=== PATIENT | male | born 1960 | race Caucasian/White ===

== ENCOUNTER 2020-04-28 16:34 | Outpatient (REF) | payer BC, SELFPAY | END 2020-04-28 16:35 | disposition home or self-care (01) | LOC: HO.LNP 16:34 | PROVIDERS: Visit Provider Internal Medicine | DX: Z20.828 Contact with and (suspected) exposure to other viral communicable diseases (principal); R53.83 Other fatigue; R05 Cough; R51.9 Headache, unspecified | CPT/HCPCS: U0003 ==

== ENCOUNTER → 2020-06-27 08:16 | Outpatient (REF) | payer BC, SELFPAY ==
--- NOTE | 2020-06-27 08:30 | CA_ITS ---
Acquisition Time: 2020-06-27 08:33:56 Total Exercise Time: 00:10:04 Test Indications: Chest Pain Medications: Protocol: SHANNEN Max HR: 151 BPM 94% of Pred: 160 BPM Max BP: 186/064 mmHG Max Work Load: 11.8 METS PT EXERCISED ON STD SHANNEN PROTOCOL FOR 10 MIN INTO STAGE 4. MAX HR 151-94% MAX. NO CP OR SOB. NO ISCHEMIC CHANGES. NO ARRHYTHMIAS. CLINICALLY AND ELEC NEG. Referred By: Ronnell Torres Overread By: ROMERO TORRES MD
== END ==
LOC: HO.CARD 08:16
PROVIDERS: PCP Internal Medicine; Visit Provider Internal Medicine
DX: R07.2 Precordial pain (principal); Z82.49 Family history of ischemic heart disease and other diseases of the circulatory system
CPT/HCPCS: 93017

== ENCOUNTER → 2020-08-03 13:41 | Outpatient (BNVA) | payer BC, SELFPAY | PROVIDERS: PCP Internal Medicine; Visit Provider Surgery | DX: K64.9 Unspecified hemorrhoids (principal) | CPT/HCPCS: 46600 ==

== ENCOUNTER 2020-09-08 15:00 | Outpatient (REF) | payer BC, SELFPAY ==
[2020-09-08 15:45] LABS: MANUAL DIFF FLAG NO
[2020-09-08 15:48] LABS: Basophils Percent Auto 0.6 % (0-2); Eosinophils Absolute Auto 0.3 X10*3/uL (0.0-0.4); Eosinophils Percent Auto 3.5 % (0-4); Hematocrit 44.8 % (42-52); Hemoglobin 14.7 g/dl (14.0-18.0); Imm Gran Abs Auto 0.02 X10*3/uL (0.00-0.03); Imm Gran Pct Auto 0.3 % (0.0-0.4); Lymphocytes Absolute Auto 1.5 X10*3/uL (1.2-4.9); Lymphocytes Percent Auto 20.7 % (20-40); Mean Corpuscular HGB Conc 32.8 g/dl (31.0-36.0); Mean Corpuscular Hemoglobin 29.1 pg (27.0-33.0); Mean Corpuscular Volume 88.7 fL (80-98); Mean Platelet Volume 10.3 fL (9.4-12.4); Monocytes Absolute Auto 0.6 X10*3/uL (0.1-1.2); Monocytes Percent Auto 7.9 % (2-11); Neutrophils Absolute Auto 4.9 X10*3/uL (2.0-8.3); Platelet Count 260 X10*3/uL (160-400); Red Blood Count 5.05 X10*6/uL (4.60-5.80); Red Cell Distribution Width 12.8 % (11.0-16.0); White Blood Count 7.2 X10*3/uL (4.8-10.8)
[2020-09-08 16:01] LABS: Alanine Aminotransferase 39 U/L (0-40); Albumin Level 4.4 g/dL (3.5-5.0); Alkaline Phosphatase 83 U/L (39-117); Anion Gap 11 (12-20); Aspartate Amino Transferase 23 U/L (5-37); Bilirubin Total 0.8 mg/dL (0.0-1.0); Blood Urea Nitrogen 16 mg/dL (9-16); C Reactive Protein 0.12 mg/dL (< or = 0.50); Calcium 8.7 mg/dL (8.4-10.2); Carbon Dioxide 27 mmol/L (22-29); Chloride 106 mmol/L (96-108); Estimated Glomerular Filt Rate > 60; Glucose Random 99 mg/dL (60-115); Sodium 140 mmol/L (135-145); Total Protein 6.9 g/dL (6.5-8.0)
[2020-09-08 16:25] LABS: Prostate Specific Antigen < 0.05 ng/mL (<0.05-4.0)
[2020-09-08 16:44] LABS: Glucose Urine UA NEG (NEG); Leukocyte Esterase Urine NEG (NEG); Nitrite Urine NEG (NEG); PH 6.5 (5.0-8.0); Urine Blood NEG (NEG); Urine Ketones NEG (NEG); Urine Protein NEG (NEG-TRACE)
[2020-09-08 16:48] LABS: Appearance Urine CLEAR; Color Urine YELLOW
== END 2020-09-08 15:01 | disposition home or self-care (01) ==
LOC: HO.LAB 15:00
PROVIDERS: PCP Internal Medicine; Visit Provider Internal Medicine
DX: R30.0 Dysuria (principal); R50.9 Fever, unspecified; Z12.5 Encounter for screening for malignant neoplasm of prostate
CPT/HCPCS: 36415; 80053; 81003; 84153; 85025; 86140; 87086

== ENCOUNTER 2021-03-14 06:11 | Outpatient (REF) | payer BC, SELFPAY ==
[2021-03-14 06:16] LABS: MANUAL DIFF FLAG NO
[2021-03-14 07:28] LABS: Basophils Percent Auto 0.5 % (0-2); Eosinophils Absolute Auto 0.2 X10*3/uL (0.0-0.4); Eosinophils Percent Auto 2.6 % (0-4); Hematocrit 46.2 % (42-52); Hemoglobin 15.1 g/dl (14.0-18.0); Imm Gran Abs Auto 0.02 X10*3/uL (0.00-0.03); Imm Gran Pct Auto 0.3 % (0.0-0.4); Lymphocytes Absolute Auto 1.5 X10*3/uL (1.2-4.9); Mean Corpuscular HGB Conc 32.7 g/dl (31.0-36.0); Mean Corpuscular Hemoglobin 29.5 pg (27.0-33.0); Mean Corpuscular Volume 90.2 fL (80-98); Mean Platelet Volume 10.4 fL (9.4-12.4); Monocytes Absolute Auto 0.5 X10*3/uL (0.1-1.2); Monocytes Percent Auto 8.6 % (2-11); Neutrophils Absolute Auto 3.9 X10*3/uL (2.0-8.3); Platelet Count 284 X10*3/uL (160-400); Red Blood Count 5.12 X10*6/uL (4.60-5.80); Red Cell Distribution Width 12.6 % (11.0-16.0); White Blood Count 6.2 X10*3/uL (4.8-10.8)
[2021-03-14 07:53] LABS: Alanine Aminotransferase 31 U/L (0-40); Albumin Level 4.6 g/dL (3.5-5.0); Alkaline Phosphatase 86 U/L (39-117); Anion Gap 10 (12-20); Aspartate Amino Transferase 20 U/L (5-37); Bilirubin Total 0.8 mg/dL (0.0-1.0); Blood Urea Nitrogen 13 mg/dL (9-16); Calcium 8.9 mg/dL (8.4-10.2); Carbon Dioxide 26 mmol/L (22-29); Chloride 108 mmol/L (96-108); Cholesterol 197 mg/dL; Estimated Glomerular Filt Rate > 60; Glucose Fasting 104 mg/dL (60-99); HDL Cholesterol 40 mg/dL; LDL Cholesterol Calculated 119 mg/dl; Potassium 4.3 mmol/L (3.3-5.1); Sodium 140 mmol/L (135-145); Total Protein 6.9 g/dL (6.5-8.0); Triglycerides 192 mg/dL
[2021-03-14 08:16] LABS: Prostate Specific Antigen < 0.05 ng/mL (<0.05-4.0)
== END 2021-03-14 06:12 | disposition home or self-care (01) ==
LOC: HO.LAB 06:11
PROVIDERS: PCP Internal Medicine; Visit Provider Internal Medicine
DX: Z00.00 Encounter for general adult medical examination without abnormal findings (principal); Z12.5 Encounter for screening for malignant neoplasm of prostate
CPT/HCPCS: 36415; 80053; 80061; 84153; 85025

== ENCOUNTER 2021-05-09 14:06 | Outpatient (REF) | payer BC, SELFPAY ==
[2021-05-09 16:32] LABS: Influenza A PCR NEGATIVE (Negative); Influenza B PCR NEGATIVE (Negative); Resp Syncy Virus RNA Qual PCR NEGATIVE (Negative); SARS COV2 PCR INHOUSE NEGATIVE (Negative)
== END 2021-05-09 14:07 | disposition home or self-care (01) ==
LOC: HO.LNP 14:06
PROVIDERS: Visit Provider Internal Medicine
DX: Z20.822 Contact with and (suspected) exposure to COVID-19 (principal)
CPT/HCPCS: 0241U

== ENCOUNTER 2021-05-31 13:26 | Outpatient (REF) | payer BC, SELFPAY ==
[2021-05-31 14:28] LABS: Influenza A PCR NEGATIVE (Negative); Influenza B PCR NEGATIVE (Negative); Resp Syncy Virus RNA Qual PCR NEGATIVE (Negative); SARS COV2 PCR INHOUSE NEGATIVE (Negative)
== END 2021-05-31 13:27 | disposition home or self-care (01) ==
LOC: HO.LNP 13:26
PROVIDERS: Visit Provider Internal Medicine
DX: Z20.822 Contact with and (suspected) exposure to COVID-19 (principal)
CPT/HCPCS: 0241U

== ENCOUNTER 2021-09-10 07:07 | Day surgery (SDC) | payer BC, SELFPAY ==
[2021-07-31 14:08] VITALS: BMI 27.3
--- NOTE | 2021-09-07 09:17 | HO.ANESPROP2 ---
Documented by User: Kandy Chris NP 09/07/21 09:18 HPI - Anesthesia Eval Consult details Narrative: 61yo M for Colonoscopy PMFSH Active Problems Active Problems: All Active Problems (Updated 07/31/21 @ 14:08 by Rosey Yañez RN) Bleeding hemorrhoids (Acute) History of prostate cancer (Acute) Hyperlipidemia (Acute) Past Medical History Medical History (Updated 07/31/21 @ 14:08 by Rosey Yañez RN) Bleeding hemorrhoids COVID-19 vaccine series completed History of prostate cancer Hyperlipidemia Surgical History Surgical History (Updated 07/31/21 @ 13:42 by Rosey Yañez RN) H/O colonoscopy History of cholecystectomy History of removal of cyst Hx of bilateral inguinal hernia repair Hx of hemorrhoidectomy Hx of prostatectomy Social History Social History Are you a primary family member caretaker to a significant other at home: No Do you presently have visiting nurse or other home services: No Alcohol intake: current Alcohol intake frequency: holidays/special occasions only Patient Tobacco Use Status: Former Tobacco user Quit Date: 2016 Tobacco use type: Cigarette Use of substances other than those prescribed or required for medical reasons: No Have you been hit, kicked, punched, or otherwise hurt by someone within the past year? If so, by whom?: No Are you DNR?: No Advance Directives: No Advance Directives Information Provided: Yes Advance Directives on File: No Recently lost weight without trying: No Eating poorly because of decreased appetite: No Nutrition Risks: No Nutritional Risk Poor oral hygiene: No Meds Allergies Allergy/AdvReac Type Severity Reaction Status Date / Time shellfish derived Allergy Unknown Unknown Verified 07/27/21 09:29 Home Medications Medication Instructions Recorded Confirmed Last Taken Type atorvastatin 10 mg tablet 10 mg PO BEDTIME 07/31/21 07/31/21 Unknown History Exam Exam Date and Time: September 07, 2021 0917 Height,Weight and Vital Signs: Height 5 ft 9 in Weight 83.915 kg Pertinent Lab Results Pertinent Lab Results: Laboratory Tests 03/14/21 03/14/21 06:15 06:15 WBC 6.2 Hgb 15.1 Hct 46.2 Plt Count 284 Sodium 140 Potassium 4.3 Chloride 108 Carbon Dioxide 26 BUN 13 Creatinine 1.01 Narrative Narrative: Stress 06/2020 Protocol: SHANNEN ? Max HR: 151 BPM? 94% of? Pred: 160 BPM Max BP: 186/064 mmHG Max Work Load: 11.8 METS ? PT EXERCISED ON STD SHANNEN PROTOCOL FOR 10 MIN INTO STAGE 4. MAX HR 151-94% MAX. ?NO CP OR SOB. NO ISCHEMIC CHANGES. NO ARRHYTHMIAS. CLINICALLY AND ELEC NEG. Assessment and Plan Assessment Anesthesia Assessment: Chart Reviewed Documented by User: Jack Chaidez MD 09/10/21 21:01 PMF Past Medical History Medical History (Updated 07/31/21 @ 14:08 by Rosey Yañez, RN) Bleeding hemorrhoids COVID-19 vaccine series completed History of prostate cancer Hyperlipidemia Family History Family history of problems with anesthesia: No Surgical History Surgical History (Updated 07/31/21 @ 13:42 by Rosey Yañez RN) H/O colonoscopy History of cholecystectomy History of removal of cyst Hx of bilateral inguinal hernia repair Hx of hemorrhoidectomy Hx of prostatectomy History of Problems with Anesthesia: No Social History Social History Are you a primary family member caretaker to a significant other at home: No Do you presently have visiting nurse or other home services: No Alcohol intake: current Alcohol intake frequency: holidays/special occasions only Patient Tobacco Use Status: Former Tobacco user Quit Date: 2016 Tobacco use type: Cigarette Use of substances other than those prescribed or required for medical reasons: No Have you been hit, kicked, punched, or otherwise hurt by someone within the past year? If so, by whom?: No Are you DNR?: No Advance Directives: No Advance Directives Information Provided: Yes Advance Directives on File: No Recently lost weight without trying: No Eating poorly because of decreased appetite: No Nutrition Risks: No Nutritional Risk Poor oral hygiene: No Meds Allergies Allergy/AdvReac Type Severity Reaction Status Date / Time shellfish derived Allergy Unknown Unknown Verified 07/27/21 09:29 Home Medications Medication Instructions Recorded Confirmed Last Taken Type atorvastatin 10 mg tablet 10 mg PO BEDTIME 07/31/21 07/31/21 Unknown History Exam Airway Mallampati Class: III TM Dist: >3cm Neck ROM: Full Loose/Missing/Broken Teeth: Yes Heart: rrr Lungs: b/l breath sounds Assessment and Plan Assessment Anesthesia Assessment: Anesthesia Plan Discussed Final Anesthetic Review Family History of Problems with Anesthesia: No History of Problems with Anesthesia: No NPO: Yes ASA Class: II Final Preanesthetic Review: Meds/Allgs Chart Reviewed, Consent Obtained/Reviewed and Anes Risks/Benef Reviewed Patient Risk: Intermediate Procedure Risk: Intermediate Anesthetic Plan Anesthetic Plan: MAC: Disposition: Standard PACU
[2021-09-10 07:36] VITALS: BP 125/85; PULSE 86; RESP 16; TEMP 36.9; O2SAT 97
[2021-09-10] MEDS: Lactated Ringers 1,000 ML 100 ML IVCONT (07:46)
[2021-09-10 09:28] VITALS: BP 106/71; PULSE 62; RESP 12; TEMP 36.6; O2SAT 95
--- NOTE | 2021-09-10 09:28 | P.BOP_ITS ---
Brief Operative Note Date of Service: 09/10/21 Pre-op diagnosis: Screening Post-op diagnosis: other (Colon polyp) Procedure: Colonoscopy to the cecum and TI with bx/removal of polyp Surgeon: Hans Glasgow Anesthesia: MAC Was an Residential Gas Heat Technician used for this Procedure?: No Estimated blood loss (mL): 2.0 Pathology: other (A. Transverse colon polyp) Condition: stable Disposition: PACU
[2021-09-10 09:47] VITALS: BP 110/64; PULSE 75; RESP 18; TEMP 36.3; O2SAT 96
--- NOTE | 2021-09-12 16:40 | OP_ITS ---
SURGEON: Hans Glasgow MD INDICATIONS: The patient presents for evaluation of colorectal cancer screening. Full consent was obtained from him for this, including risks of bleeding and perforation. PREOPERATIVE DIAGNOSIS: Colorectal cancer screening. POSTOPERATIVE DIAGNOSIS: PROCEDURE PERFORMED: Colonoscopy to cecum and terminal ileum with biopsy and removal of polyp. ESTIMATED BLOOD LOSS: COMPLICATIONS: ANESTHESIA: Monitored anesthesia care. ASSISTANTS: SPECIMENS: POSTOPERATIVE DIAGNOSES: Colorectal cancer screening, small colon polyp, diverticulosis and internal hemorrhoids. DESCRIPTION OF PROCEDURE: The patient was placed in the left lateral decubitus position. The digital rectal exam revealed no abnormalities. The Olympus video pediatric colonoscope was entered into the rectum and advanced easily to the cecum. Once in the cecum, I did identify normal-appearing cecal pouch with appendiceal orifice and a normal-appearing ileocecal valve. The terminal ileum was cannulated and appeared normal. Scope was withdrawn back in the colon. The entire cecum and ileocecal valve appeared normal. Scope was slowly withdrawn assessing all mucosal surfaces carefully. Preparation was excellent. In the transverse colon was an approximately 5 mm grossly adenomatous polyp, which was biopsied and completely removed with cold biopsy forceps. I did not visualize any other polyps, colitis, nor angiodysplasia. There was a mild amount of sigmoid diverticulosis. In the rectum, scope was retroflexed visualizing internal hemorrhoids, but no other pathology. The rectal mucosa appeared normal. The scope was straightened and withdrawn from the patient. He tolerated the procedure well and was returned to the recovery area in stable condition. IMPRESSION: 1. Small colon polyp, status post biopsy removal. 2. Diverticulosis. 3. Internal hemorrhoids. PLAN: The results of biopsy will be checked. If this is a tubular adenoma, I would recommend a followup colonoscopy in 5 years. If it is only hyperplastic, I would recommend a followup colonoscopy in 10 years. He was advised not to use any aspirin and NSAIDs for 1 week. He will otherwise see me on a p.r.n. basis. MD CHERYL Lozano/AKHIL / [phone]
== END 2021-09-10 10:09 | disposition home or self-care (01) ==
PROVIDERS: PCP Internal Medicine; Visit Provider Internal Medicine
PROC: 0DJD8ZZ Inspection of Lower Intestinal Tract, Via Natural or Artificial Opening Endoscopic (ICD-10-PCS; CPT 45378; principal; 2021-09-10 08:20)
DX: Z12.11 Encounter for screening for malignant neoplasm of colon (principal); D12.3 Benign neoplasm of transverse colon; K57.30 Diverticulosis of large intestine without perforation or abscess without bleeding; K64.8 Other hemorrhoids; E78.00 Pure hypercholesterolemia, unspecified; Z85.46 Personal history of malignant neoplasm of prostate; Z87.891 Personal history of nicotine dependence; Z90.49 Acquired absence of other specified parts of digestive tract
CPT/HCPCS: 45380; 88305

== ENCOUNTER 2022-12-24 06:28 | Outpatient (REF) | payer BC, SELFPAY ==
[2022-12-24 06:47] LABS: MANUAL DIFF FLAG NO
[2022-12-24 07:21] LABS: Basophils Percent Auto 0.6 % (0-2); Eosinophils Absolute Auto 0.2 X10*3/uL (0.0-0.4); Eosinophils Percent Auto 3.2 % (0-4); Hematocrit 47.4 % (42.0-52.0); Hemoglobin 15.3 g/dl (14.0-18.0); Imm Gran Abs Auto 0.02 X10*3/uL (0.00-0.03); Imm Gran Pct Auto 0.4 % (0.0-0.4); Lymphocytes Absolute Auto 1.6 X10*3/uL (1.2-4.9); Mean Corpuscular HGB Conc 32.3 g/dl (31.0-36.0); Mean Corpuscular Hemoglobin 29.6 pg (27.0-33.0); Mean Corpuscular Volume 91.7 fL (80.0-98.0); Mean Platelet Volume 10.4 fL (9.4-12.4); Monocytes Absolute Auto 0.5 X10*3/uL (0.1-1.2); Monocytes Percent Auto 9.5 % (2-11); Neutrophils Absolute Auto 3.1 x10*3/uL (2.0-8.3); Neutrophils Percent Auto 57.3 % (45-73); Platelet Count 255 X10*3/uL (160-400); Red Blood Count 5.17 X10*6/uL (4.60-5.80); Red Cell Distribution Width 12.6 % (11.0-16.0); White Blood Count 5.4 X10*3/uL (4.8-10.8)
[2022-12-24 07:31] LABS: Appearance Urine Clear; Color Urine Yellow; Glucose Urine UA Negative (Negative); Leukocyte Esterase Urine Negative (Negative); Nitrite Urine Negative (Negative); PH 5.5 (5.0-9.0); Specific Gravity - Urine >= 1.030 (1.005-1.025); Urine Blood Negative (Negative); Urine Ketones Negative (Negative); Urine Protein Negative (Neg-Trace)
[2022-12-24 07:53] LABS: Alanine Aminotransferase 24 U/L (0-40); Albumin Level 4.5 g/dL (3.5-5.0); Alkaline Phosphatase 88 U/L (39-117); Anion Gap 11 (12-20); Aspartate Amino Transferase 18 U/L (5-37); Bilirubin Total 1.1 mg/dL (0.0-1.0); Blood Urea Nitrogen 14 mg/dL (9-16); Calcium 9.3 mg/dL (8.4-10.2); Carbon Dioxide 29 mmol/L (22-29); Chloride 104 mmol/L (96-108); Cholesterol 177 mg/dL; Estimated Glomerular Filt Rate > 60; Glucose Fasting 100 mg/dL (60-99); HDL Cholesterol 44 mg/dL; LDL Cholesterol Calculated 104 mg/dl; Potassium 3.9 mmol/L (3.3-5.1); Sodium 140 mmol/L (135-145); Total Protein 7.2 g/dL (6.5-8.0); Triglycerides 145 mg/dL
[2022-12-24 08:04] LABS: Thyroid Stimulating Hormone 4.39 uIU/mL (0.32-4.0)
[2022-12-24 08:25] LABS: Prostate Specific Antigen < 0.10 ng/mL (<0.05-4.0); Vitamin B12 448 pg/mL (200-900)
[2022-12-29 12:23] LABS: Testosterone, Total 649 ng/dL (250-1100)
== END 2022-12-24 06:29 | disposition home or self-care (01) ==
LOC: HO.LAB 06:28
PROVIDERS: PCP Internal Medicine; Visit Provider Internal Medicine
DX: Z12.5 Encounter for screening for malignant neoplasm of prostate (principal); R53.83 Other fatigue; E78.00 Pure hypercholesterolemia, unspecified; Z82.49 Family history of ischemic heart disease and other diseases of the circulatory system
CPT/HCPCS: 36415; 80053; 80061; 81003; 82607; 84153; 84403; 84443; 85025

== ENCOUNTER 2023-01-22 06:02 | Outpatient (REF) | payer BC, SELFPAY ==
[2023-01-22 08:56] LABS: Free T4 (Free Thyroxine) 0.77 ng/dL (0.71-1.85); Thyroid Stimulating Hormone 5.33 uIU/mL (0.32-4.0)
[2023-01-24 00:18] LABS: Triiodothyronine T3 Free 3.5 pg/mL (2.3-4.2)
== END 2023-01-22 06:03 | disposition home or self-care (01) ==
LOC: HO.LAB 06:02
PROVIDERS: PCP Internal Medicine; Visit Provider Internal Medicine
DX: R94.6 Abnormal results of thyroid function studies (principal)
CPT/HCPCS: 36415; 84439; 84443; 84481

== ENCOUNTER 2023-01-29 08:27 | Outpatient (REF) | payer BC, SELFPAY ==
--- NOTE | 2023-01-29 08:30 | EMG_ITS ---
Please see scanned EMG / Nerve Conduction Report. MTDD
== END 2023-01-29 08:28 | disposition home or self-care (01) ==
LOC: HO.NEURO 08:27
PROVIDERS: PCP Internal Medicine; Visit Provider Internal Medicine
DX: M25.531 Pain in right wrist (principal); R20.0 Anesthesia of skin
CPT/HCPCS: 95885; 95910

== ENCOUNTER 2023-02-28 10:36 | Outpatient (AMB) | payer BC, SELFPAY ==
--- NOTE | 2023-02-28 12:59 | AM.OFFWIN_ITS ---
Intake Vital Signs 02/28/23 13:00 Height 5 ft 9 in Weight 181 lb BMI 26.7 BP 122/64 Blood Pressure Location Rt brachial Position Sitting Pulse 80 Pulse Source Pulse Oximeter Temp 98.4 F Temp Source Temporal Artery Scan Pulse Oximetry (%) 97 Oxygen Delivery Method Room Air Intake Visit Reasons: EP Diarrhea 3 days, fever [phone] Intake Note: Pt is here c/o fever and diarrhea for the past three days. Pt states he was negative for COVID. Patient Tobacco Use Status: Former Tobacco user Quit Date: 2016 Allergies shellfish derived Allergy (Unknown, Verified 02/28/23 13:00) Unknown Do you need a note to return to daycare/school/sports/work: No HPI HPI Comments History of Present Illness Details This is a 62-year-old male who presents to the office today for sick visit. Patient complaining of diarrhea x3 days. Patient states he has been having several episodes of very liquidy/watery diarrhea x3 days as well as fevers as high as 102? F. Patient with recent travel to [facility], but has been back for several weeks. No abdominal pain. No nausea or vomiting. No abnormal food exposures. No recent antibiotic use. No melena/ hematochezia or mucus in stool. Patient has been drinking water and Gatorade to stay hydrated. He is using Tylenol for fever. He is feeling weak. [facility] Medical History (Updated 07/31/21 @ 14:08 by Rosey Yañez RN) COVID-19 vaccine series completed Bleeding hemorrhoids History of prostate cancer Hyperlipidemia Surgical History (Updated 07/31/21 @ 13:42 by Rosey Yañez RN) Hx of hemorrhoidectomy Hx of prostatectomy Hx of bilateral inguinal hernia repair H/O colonoscopy History of removal of cyst History of cholecystectomy Social History Are you a primary career agent to a significant other at home: No Do you presently have visiting nurse or other home services: No Alcohol intake: current Alcohol intake frequency: holidays/special occasions only Patient Tobacco Use Status: Former Tobacco user Quit Date: 2016 Tobacco use type: Cigarette Review of Systems Const All systems reviewed & are unremarkable except as noted in HPI and below Reports no additional complaints Eyes Reports no additional complaints ENT Reports no additional complaints Card Reports no additional complaints Resp Reports no additional complaints GI Reports no additional complaints Reports no additional complaints Musc Reports no additional complaints Skin/Breast Reports system reviewed and no additional complaints, except as documented Neuro Reports no additional complaints Psych Reports no additional complaints Endo Reports no additional complaints Sam/Lymph Reports no additional complaints Aller/Immun Reports no additional complaints Physical Exam Vital Signs: Last Vital Signs Temp 98.4 F 02/28/23 13:00 Pulse 80 02/28/23 13:00 BP 122/64 02/28/23 13:00 Pulse Ox 97 02/28/23 13:00 Oxygen Delivery Method Room Air 02/28/23 13:00 BMI result Body Mass Index 26.7 Const Other: Vital signs reviewed. Constitutional: Non-toxic appearing. No acute distress. Well-developed and well-nourished. HEENT: Normocephalic and atraumatic. Tympanic membranes without erythema, edema, or bulging bilaterally. External auditory canals without erythema or edema bilaterally. Moist mucous membranes. No pharyngeal erythema or exudates. Skin: Warm and dry. No rashes or lesions noted. Neck: Full and painless range of motion. No cervical lymphadenopathy. Cardio: Regular rate and rhythm. No murmurs, gallops, or rubs. No lower extremity edema. No JVD. Pulmonary: No respiratory distress. No accessory muscle usage. Clear to auscultation bilaterally without wheezing, crackles, or rhonchi. Gastrointestinal: Soft, nontender, and nondistended in all 4 quadrants. Normoactive bowel sounds in all 4 quadrants. Genitourinary: No CVA tenderness. Musculoskeletal: Normal range of motion in joints throughout the body. No deformity or other signs of injury. Neuro: Alert and oriented x4. Cranial nerves 2-12 grossly intact. No focal def icits appreciated. Psych: Normal mood and affect. Assessment & Plan Assessment & Plan (1) Infectious diarrhea: Code(s): A09 - Infectious gastroenteritis and colitis, unspecified Plan: this is a 62-year-old male presenting to the office complaining of diarrhea and fevers x3 days. On physical examination, patient has no abdominal tenderness to palpation in his abdomen is soft and nondistended with normoactive bowel sounds. Patient's physical exam is otherwise benign, his vital signs are stable, and he is overall nontoxic appearing. Patient likely has infectious diarrhea given the fevers. Treat with PO azithromycin 500 mg daily x3 days. Recommended a bland diet and increased hydration. Patient advised to follow-up here or proceed directly to the emergency room for persistent/ worsening symptoms including abdominal pain, worsening fevers, or lightheadedness/ dizziness to suggest dehydration. Patient verbalized understanding and is agreeable with the plan. Medications: New azithromycin 500 mg PO DAILY 3 days 3 tabs 0RF Coding Level of Care Code New Pt Level 3 (84984) Diagnoses Infectious diarrhea A09
[2023-02-28 13:00] VITALS: BP 122/64; PULSE 80; TEMP 36.9; O2SAT 97; BMI 26.7
== END 2023-02-28 13:26 | disposition home or self-care (01) ==
PROVIDERS: PCP Internal Medicine; Visit Provider Physician Assistant Medical
DX: A09 Infectious gastroenteritis and colitis, unspecified (principal)
CPT/HCPCS: 99203

== ENCOUNTER 2023-10-01 14:47 | Outpatient (REF) | payer BC, SELFPAY ==
[2023-10-01 15:05] LABS: MANUAL DIFF FLAG NO
[2023-10-01 15:34] LABS: Basophils Percent Auto 0.4 % (0-2); Eosinophils Absolute Auto 0.1 X10*3/uL (0.0-0.4); Eosinophils Percent Auto 1.7 % (0-4); Hematocrit 47.1 % (42.0-52.0); Hemoglobin 15.9 g/dl (14.0-18.0); Imm Gran Abs Auto 0.01 X10*3/uL (0.00-0.03); Imm Gran Pct Auto 0.1 % (0.0-0.4); Lymphocytes Absolute Auto 1.5 X10*3/uL (1.2-4.9); Lymphocytes Percent Auto 21.2 % (20-40); Mean Corpuscular HGB Conc 33.8 g/dl (31.0-36.0); Mean Corpuscular Hemoglobin 30.1 pg (27.0-33.0); Mean Corpuscular Volume 89.2 fL (80.0-98.0); Mean Platelet Volume 10.1 fL (9.4-12.4); Monocytes Absolute Auto 0.6 X10*3/uL (0.1-1.2); Monocytes Percent Auto 8.4 % (2-11); Neutrophils Absolute Auto 4.9 x10*3/uL (2.0-8.3); Neutrophils Percent Auto 68.2 % (45-73); Platelet Count 252 X10*3/uL (160-400); Red Blood Count 5.28 X10*6/uL (4.60-5.80); Red Cell Distribution Width 12.7 % (11.0-16.0); White Blood Count 7.2 X10*3/uL (4.8-10.8)
[2023-10-01 15:43] LABS: Appearance Urine Clear; Color Urine Yellow; Glucose Urine UA Negative (Negative); Leukocyte Esterase Urine Negative (Negative); Nitrite Urine Negative (Negative); PH 5.5 (5.0-9.0); Specific Gravity - Urine 1.025 (1.005-1.025); Urine Blood Negative (Negative); Urine Ketones Trace mg/dL (Negative); Urine Protein Negative (Neg-Trace)
[2023-10-01 16:09] LABS: Alanine Aminotransferase 27 U/L (0-40); Albumin Level 4.8 g/dL (3.5-5.0); Alkaline Phosphatase 91 U/L (39-117); Anion Gap 12 (12-20); Aspartate Amino Transferase 25 U/L (5-37); Bilirubin Total 1.1 mg/dL (0.0-1.0); Blood Urea Nitrogen 12 mg/dL (9-16); Calcium 9.5 mg/dL (8.4-10.2); Carbon Dioxide 27 mmol/L (22-29); Chloride 105 mmol/L (96-108); Estimated Average Glucose 111 mg/dL; Estimated Glomerular Filt Rate > 60; Glucose Random 82 mg/dL (60-115); Hemoglobin A1c % 5.5 % (<6.0); Potassium 3.9 mmol/L (3.3-5.1); Sodium 140 mmol/L (135-145); Total Protein 7.7 g/dL (6.5-8.0)
[2023-10-01 17:12] LABS: CT PCR NOT DETECTED (Not Detect.); NG PCR NOT DETECTED (Not Detect.)
[2023-10-06 10:38] LABS: Free Prostate Spec Ag <0.1 ng/mL; Percent Free Prostate Spec Ag UNABLE TO CALCULATE % (calc) (>25); Prostate Specific Ag Total <0.1 ng/mL (< OR = 4.0)
== END 2023-10-01 14:48 | disposition home or self-care (01) ==
LOC: HO.LAB 14:47
PROVIDERS: PCP Internal Medicine; Visit Provider Internal Medicine
DX: R30.0 Dysuria (principal); Z85.46 Personal history of malignant neoplasm of prostate
CPT/HCPCS: 0353U; 80053; 81003; 83036; 84154; 85025; 86140; 87086

== ENCOUNTER 2024-04-13 15:51 | Outpatient (REF) | payer BC, SELFPAY ==
[2024-04-13 16:15] LABS: IDNOW Serial# 58CA691E; Strep A Nucleic Acid Negative (Negative)
[2024-04-13 17:34] LABS: Influenza A PCR NEGATIVE (Negative); Influenza B PCR NEGATIVE (Negative); Resp Syncy Virus RNA Qual PCR NEGATIVE (Negative); SARS COV2 PCR INHOUSE POSITIVE (Negative)
== END 2024-04-13 15:52 | disposition home or self-care (01) ==
LOC: HO.LNP 15:51
PROVIDERS: Visit Provider Internal Medicine
DX: J02.9 Acute pharyngitis, unspecified (principal); R50.9 Fever, unspecified; R05.8 Other specified cough
CPT/HCPCS: 0241U; 87651

== ENCOUNTER 2024-06-24 08:00 | Outpatient (AMB) | payer BC, SELFPAY ==
--- NOTE | 2024-06-24 08:22 | MHC.PC.OV ---
Vital Signs 06/24/24 08:23 Height 5 ft 8 in Weight 175 lb 6 oz BMI 26.7 BP 110/68 Blood Pressure Location Lt brachial Position Sitting Pulse 67 Pulse Source Pulse Oximeter Temp 97.3 F Temp Source Skin Pulse Oximetry (%) 97 Oxygen Delivery Method Room Air Intake Visit Reasons: establish care Intake Note: Patient is a new patient here to establish care for Prostate cancer, Cholesterol. Transferring care from Dr Armenta. Medical records have been requested and have not received. Foreign Language Professor Required: No Criminal Investigator: Not Required per policy Accompanied by: Self / Same As Patient Allergies shellfish derived Allergy (Unknown, Verified 06/24/24 08:22) Unknown Tobacco use date assessed: 06/24/24 Fall risk assessment: No Falls in past year Last assessed Fall Risk: 06/24/24 Dental Screening Dental Screen Date: 06/24/24 Did you have a dental visit in the last 12 months?: Yes Did you have a dental problem in the last 6 months where you did not have access to dental care?: No Was dental information given to patient?: Patient has dentist [facility] Medical History (Updated 06/24/24 @ 09:04 by Piero Espinoza MD) Prostate cancer COVID-19 vaccine series completed Bleeding hemorrhoids History of prostate cancer Hyperlipidemia Surgical History (Updated 06/24/24 @ 09:01 by Piero Espinoza MD) Hx of hemorrhoidectomy Hx of prostatectomy Hx of bilateral inguinal hernia repair H/O colonoscopy (09/10/21) History of removal of cyst History of cholecystectomy Social History (Updated 06/24/24 @ 08:31 by EMRE Evans) Housing: House Are you a primary patient care representative to a significant other at home: No Do you presently have visiting nurse or other home services: No Alcohol intake: current Alcohol intake frequency: holidays/special occasions only Patient Tobacco Use Status: Former Tobacco user (2017) Tobacco use type: Cigarette e-Cigarette/Vaping Use: Never Used Second Hand Smoke Exposure: Yes service: Yes Current occupational status: employed 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 1. Little interest or pleasure in doing things: not at all 2. Feeling down, depressed, or hopeless: not at all 3. Trouble falling or staying asleep, or sleeping too much: not at all 4. Feeling tired or having little energy: not at all 5. Poor appetite or overeating: not at all 6. Feeling bad about yourself - or that you are a failure or have let yourself or your family down: not at all 7. Trouble concentrating on things, such as reading the newspaper or watching television: not at all 8. Moving or speaking so slowly that other people could have noticed. Or the opposite - being so fidgety or restless that you have been moving around a lot more than usual: not at all 9. Thoughts that you would be better off or of hurting yourself in some way: not at all Total score: 0 Depression Screening Interpretation: Negative Depression Screening Done: Yes Source: Developed by Drs. Hans Mason, Catalina Abdullahi, Krishna Her and colleagues, with an educational jeanette from [employer]. Thrive Questionnaire Date Thrive assessed: 06/24/24 I am a: Patient What is your living situation today?: I have a steady place to live Within the past 12 months, did the food you bought not last and you didn't have the money to get more?: Never true Within the past 12 months, did you worry whether your food would run out before you got money to buy more?: Never true Do you have trouble paying for medicines?: No Do you have trouble getting transportation to medical appointments?: No Do you have trouble paying your heating and electricity bill?: No Do you have trouble taking care of your child, family member or friend?: No Do you have trouble with day-to-day activities such as bathing, preparing meals, shopping, managing finances, etc.?: No Are you currently unemployed and looking for a job?: No Are you interested in more education?: No Please select the resources that you would like help with: None Currently or been in a relationship where the following occur: No concerns reported THRIVE Score: 0 AUDIT C Alcohol Use Questionnaire (AUDIT-C) 1. How often do you have a drink containing alcohol?: Monthly or less 2. How many drinks containing alcohol do you have on a typical day when you are drinking?: 1 or 2 3. How often do you have six or more drinks on one occasion?: Never Total Score: 1 THEODORE-7 AMB Questionnaire THEODORE-7 Date THEODORE - 7 assessed: 06/24/24 Feeling nervous, anxious, or on edge: 0 = Not at all Not being able to stop or control worryin = Not at all Worrying too much about different things: 0 = Not at all Trouble relaxin = Not at all Being so restless that it is hard to sit still: 0 = Not at all Becoming easily annoyed or irritable: 0 = Not at all Feeling afraid as if something awful might happen: 0 = Not at all Total THEODORE-7 score (0-4 normal; 5-9 mild; 10-14 moderate; 15-21 severe): 0 Source: Developed by Drs. Hans Mason, Catalina Abdullahi, Krihsna Her and colleagues, with an educational jeanette from [employer]. Physical exam (Primary Care) Vital Signs: Last Vital Signs Temp 97.3 F 06/24/24 08:23 Pulse 67 06/24/24 08:23 BP 110/68 06/24/24 08:23 Pulse Ox 97 06/24/24 08:23 Oxygen Delivery Method Room Air 06/24/24 08:23 BMI result Body Mass Index 26.7 Tobacco/Smoking Status: Tobacco use Status Tobacco use date assessed 06/24/24 06/24/24 08:32 Patient Tobacco Use Status Former Tobacco user (2017) 06/24/24 08:32 Tobacco use type Cigarette 06/24/24 08:32 e-Cigarette/Vaping Use Never Used 06/24/24 08:32 PHQ-9: PHQ-9 Score PHQ-9: Total score 0 06/24/24 08:32 Depression Screening Interpretation: Negative Thrive Assessment: Date of Thrive Assessment Date Thrive assessed 06/24/24 06/24/24 08:32 Currently or been in a relationship where the following occur: No concerns reported Coding Level of Care Code New Pt Level 4 (97788) Complex EM visit Add On G2211 Diagnoses Prostate cancer C61 Hyperlipidemia E78.5 Assessment & Plan Assessment & Plan (1) Prostate cancer: Code(s): C61 - Malignant neoplasm of prostate Category: Medical Plan: Underwent a complete prostatectomy. PSA has been undectable to date. PSA to be checked. Erectile dysfunction due to surgery and VIagra to be ordered. (2) Hyperlipidemia: Code(s): E78.5 - Hyperlipidemia, unspecified Category: Medical Plan: Fasting bw to be ordered. Plan History of Present Illness The patient is a 64-year-old male presenting with a request to transfer his care following the long-term of his previous physician. The patient reports a history of prostate cancer for which he underwent a total prostatectomy in 2017; his PSA levels have remained undetectable since. He follows a regimen of Viagra for post-operative management. The patient reports experiencing recurrent chilblains as cold-induced redness and pain at the tips of his toes during winter months, which resolves with Gabapentin. He has a history of hyperlipidemia and is currently managed with a statin, specifically atorvastatin 10 mg daily. There has been a significant lifestyle modification since his surgery, including improved dietary habits and increased physical activity, resulting in weight loss from 185 to 175 pounds. The patient also quit smoking the same year as his surgery in 2017. There was a previous episode of COVID-19 a month ago, which was resolved. A colonoscopy performed at [place] found one polyp. He is current with his vaccinations, having received a flu vaccine. 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 - Housing: Resides in [place]. - Exercise: Increased physical activity noted; patient reports better food choices and regular exercise. - Substance Use: Former smoker; quit in 2017 as part of a health revamp. - Weight Management: Weight loss from 185 pounds to 175 pounds after increased exercise and dietary changes. - Family: , has children and grandchildren. is from [place]. Review of Systems - Dermatologic: Reports redness and pain at the tips of toes during winter months (chilblains). - Musculoskeletal: Denies joint pain or swelling. - Gastrointestinal: Denies abdominal pain. Physical Exam General: Appearance normal, both eyes and all related structures Nutritional Appearance: Well nourished, weight down to 175 from 185 Orientation/consciousness: Patient oriented x3 Limitations: No limitations Head: Normal to inspection Neck: Normal visual inspection Chest: Normal palpation of entire chest wall Respiratory: Normal respiratory effort Neurology: Patient oriented x3, reports painful red toes in winter, possibly due to chillblains, managed with gabapentin Results - Labs: N/A - Tests and Diagnostics: Colonoscopy (one polyp found) Plan - Blood work to be repeated after two weeks upon clinician's return, then routinely every six months. - Continue current management with atorvastatin for hyperlipidemia. - Continue the use of Gabapentin as needed for symptomatic relief of chilblains. - Underwent a colonoscopy, found one polyp; to ensure follow-up results of colonoscopy are available. - Maintain undetectable PSA levels through regular monitoring. Patient was informed and verbally consented to the use of an ambient scribe for clinic note documentation during this visit. Discussion Notes During our visit, I confirmed the patient's acceptance of care transition due to the previous physician's long-term. We discussed the management plan for his hyperlipidemia, including the continuation of his statin. I explained the likely cause of his chilblains as a response to cold and recommended the current Gabapentin was appropriate for nerve-related symptoms. We also discussed the importance of continuing his health maintenance activities, including monitoring PSA levels and maintaining a healthy lifestyle. Routine blood work was planned for once the patient returns in July due to my impending absence. The importance of colonoscopy findings and ensuring flu vaccination noted were reinforced. Patient Instructions - Schedule blood work for early July as per prior instruction. - Continue statin medication for cholesterol management. - Use Gabapentin if symptoms of toe redness and pain recur. - Maintain current healthful diet and exercise regimen. - Ensure follow-up colonoscopy reports and flu vaccination are documented and accessible. - Follow up in six months on a , as discussed.
[2024-06-24 08:23] VITALS: BP 110/68; PULSE 67; TEMP 36.3; O2SAT 97; BMI 26.7
== END 2024-06-24 08:59 | disposition home or self-care (01) ==
PROVIDERS: PCP Internal Medicine; Visit Provider Internal Medicine
DX: C61 Malignant neoplasm of prostate (principal); E78.5 Hyperlipidemia, unspecified

== ENCOUNTER → 2024-06-24 08:00 | Outpatient (BNVA) | payer BC, SELFPAY | PROVIDERS: PCP Internal Medicine; Visit Provider Internal Medicine ==

== ENCOUNTER 2024-08-05 06:41 | Outpatient (REF) | payer BC, SELFPAY ==
--- OUTSIDE RECORDS SUMMARY | 2024-08-05 06:43 | XMS_ITS | Patient Health Record ---
Author Organization [facility] Address [address] [place] [address] Care Team Providers Care Cat Hooker Name Role Phone Ronnell Armenta MD Primary Care Provider Hans Martínez Unavailable [phone] ALLERGIES No Known Allergies REASON FOR REFERRAL No Information MEDICATIONS Medication SIG (Take, Route, Frequency, Duration) Notes Start Date End Date Status Atorvastatin Calcium 10 MG Oral for 90 Active IMMUNIZATIONS Vaccine Route Administration Date Status Comme nts Influenza Unknown 03/02/2018 Administered Influenza Unknown 03/09/2021 Administered SOCIAL HISTORY Tobacco Use: Social History Observation Description Date Details (start date - stop date) Former Smoker NA - NA Sex Assigned At : Social History Observation Description Sex Assigned At Unknown Tobacco Use/Smoking Question Answer Notes Patient is a former smoker When did you stop smoking? 2016 How long has it been since you last smoked? 1-5 years Alcohol Screen Question Answer Notes Did you have a drink contain ing alcohol in the past year? Yes How often did you have a dri nk containing alcohol in the past year? Monthly or less (1 point) How many drinks did you have on a typical day when you were drinking in the past year? 1 or 2 drinks (0 point) Points 1 Interpretation Negative PROBLEMS Problem Type ICD Code Onset Dates Problem Status W/U Status Risk SNOMED Code Notes Problem Encounter for screening for malignant neoplasm of colon (Z12.11) Active confirmed 238681399 Problem Pre-procedural examination (Z01.818) Active confirmed 335956556760396 Problem Diverticulosis of colon (K57.30) Active confirmed Diverticulosi s of colon (512838663) PLAN OF TREATMENT Pending Test Test Name Order Date Pathology 09/10/2021 Future Test Test Name Order Date COLONOSCOPY 06/28/2021 Insurance Providers Payer Name Payer Address Payer Phone Subscriber Number Group Number Insured Name Patient Relationship to Insured Coverage Start Date Coverage End Date [facility] [address] [place], [place] [phone] [id number] SANDRA ALVAREZ Self - patient is the insured MEDICAL (GENERAL) HISTORY Medical History History ICD Code Denies [place],DM,CVA,Lung disease,renal dise ase 08/2015 prostate cancer - surgery as belo w Negative colonoscopy in 10/[address] Ayers--diverticulosis Elevated cholesterol Neg. ETT in 2020 Surgical History Surgery Date(Month/Year) Prostate cancer--prostatectomy--[facility] in 08/2015 Cholecystectomy 2010 Left inguinal hernia Hemorrhoid
[2024-08-05 07:13] LABS: Hematocrit 45.4 % (42.0-52.0); Hemoglobin 14.8 g/dl (14.0-18.0); Mean Corpuscular HGB Conc 32.6 g/dl (31.0-36.0); Mean Corpuscular Hemoglobin 29.2 pg (27.0-33.0); Mean Corpuscular Volume 89.7 fL (80.0-98.0); Platelet Count 257 X10*3/uL (160-400); Red Blood Count 5.06 X10*6/uL (4.60-5.80); White Blood Count 4.6 X10*3/uL (4.8-10.8)
[2024-08-05 07:31] LABS: Appearance Urine Clear; Color Urine Yellow; Glucose Urine UA Negative (Negative); Leukocyte Esterase Urine Negative (Negative); Nitrite Urine Negative (Negative); Specific Gravity - Urine 1.025 (1.005-1.025); Urine Blood Negative (Negative); Urine Ketones Negative (Negative); Urine Protein Negative (Neg-Trace)
[2024-08-05 07:44] LABS: Alanine Aminotransferase 40 U/L (0-40); Albumin Level 4.5 g/dL (3.5-5.0); Alkaline Phosphatase 87 U/L (39-117); Anion Gap 10 (12-20); Aspartate Amino Transferase 25 U/L (5-37); Bilirubin Direct 0.3 mg/dL (0.0-0.5); Bilirubin Total 0.8 mg/dL (0.0-1.0); Blood Urea Nitrogen 14 mg/dL (9-16); Calcium 9.4 mg/dL (8.4-10.2); Carbon Dioxide 25 mmol/L (22-29); Chloride 109 mmol/L (96-108); Cholesterol 168 mg/dL (<200); Estimated Glomerular Filt Rate > 60; Glucose Random 107 mg/dL (60-115); HDL Cholesterol 46 mg/dL (>40); LDL Cholesterol Calculated 104 mg/dL (<100); Potassium 4.3 mmol/L (3.3-5.1); Sodium 140 mmol/L (135-145); Total Protein 7.1 g/dL (6.5-8.0); Triglycerides 90 mg/dL (<150)
[2024-08-05 07:59] LABS: Thyroid Stimulating Hormone 2.74 uIU/mL (0.32-4.0)
[2024-08-05 08:04] LABS: Prostate Specific Antigen Scr < 0.10 ng/mL (<0.05-4.0)
== END 2024-08-05 06:42 | disposition home or self-care (01) ==
LOC: HO.LAB 06:41
PROVIDERS: PCP Internal Medicine; Visit Provider Internal Medicine
DX: E78.5 Hyperlipidemia, unspecified (principal); C61 Malignant neoplasm of prostate; Z12.5 Encounter for screening for malignant neoplasm of prostate
CPT/HCPCS: 36415; 80048; 80061; 80076; 81003; 84153; 84443; 85027

== ENCOUNTER 2024-10-24 20:00 | Emergency (ER) | payer BC, SELFPAY ==
--- NOTE | 2024-10-24 20:07 | ED_ITS ---
HPI - General Adult General Chief complaint: Fever Stated complaint[place] bite vidya on leg Time Seen by Provider: 10/25/24 01:59 Source: patient, RN notes reviewed and old records reviewed Mode of arrival: ambulatory Limitations: no limitations History of Present Illness ED Provider: Yancy SAVAGE narrative: 64-year-old male with past medical history significant for hyperlipidemia, history of prostate cancer presents for evaluation of a fever. The patient from [facility] earlier today He reports visiting for 2 weeks He reports that he has had a fever since while he was still in [facility]. He reports at the time of the fever he noticed a small bite on his left monahan He is unsure of what bit him He reports that he was not in an endemic area for malaria He has been using ibuprofen/Tylenol for his fevers with good relief Mild headache, denies any neck pain, denies any cough, shortness of breath, abdominal pain, nausea vomiting, or diarrhea Related Data Home Medications ?Medication ?Instructions ?Recorded ?Confirmed atorvastatin 10 mg tablet 10 mg PO BEDTIME 07/31/21 07/31/21 sildenafil 100 mg tablet 100 mg PO DAILY 06/24/24 Previous Rx's ?Medication ?Instructions ?Recorded hydrocortisone 2.5 % topical cream [address] BID-QID PRN hemorrhoids 09/03/24 with perineal applicator #30 grams doxycycline hyclate 100 mg tablet 100 mg PO BID #14 tabs 10/25/24 Allergies Allergy/AdvReac Type Severity Reaction Status Date / Time shellfish derived Allergy Unknown Unknown Verified 10/24/24 20:21 Review of Systems 2 Constitutional: Constitutional: Denies body ache(s), Reports chills, Denies fatigue, Reports fever(s), Denies frequent falls, Reports headache(s), Denies malaise and Denies weakness Eyes: Eyes: Denies blurry vision and Denies floaters ENT: Denies vertigo, Denies dizziness, Reports headache(s), Denies hoarseness and Denies neck pain Cardiovascular: Cardiovascular: Denies chest pain and Denies dyspnea Respiratory: Respiratory: Denies cough and Denies dyspnea Gastrointestinal: Gastrointestinal: Denies abdominal pain, Denies nausea and Denies vomiting Musculoskeletal: Musculoskeletal: Denies back pain, Denies neck pain and Denies stiffness Integumentary/Breasts: Skin/Breast: Reports erythema and Reports rash Neurologic: Denies vertigo, Denies dizziness, Denies frequent falls, Reports headache(s) and Denies weakness Endocrine: Endocrine: Denies fatigue PMFSH Past Medical History Medical History (Updated 10/25/24 @ 02:20 by Jean Paul Haines) Prostate cancer COVID-19 vaccine series completed Bleeding hemorrhoids History of prostate cancer Hyperlipidemia Surgical History (Updated 09/21/24 @ 08:51 by Jennifer Barcenas) Hx of hemorrhoidectomy Hx of prostatectomy Hx of bilateral inguinal hernia repair H/O colonoscopy (09/12/21) History of removal of cyst History of cholecystectomy Social History Social History (Updated 06/24/24 @ 08:31 by EMRE Evans) Housing: House Are you a primary caregiver assisted living to a significant other at home: No Do you presently have visiting nurse or other home services: No Alcohol intake: current Alcohol intake frequency: holidays/special occasions only Patient Tobacco Use Status: Former Tobacco user (2017) Tobacco use type: Cigarette e-Cigarette/Vaping Use: Never Used Second Hand Smoke Exposure: Yes Advance Directives: No Advance Directives Information Provided: Yes Do you have a plan to hurt others: No Plan service: Yes Current occupational status: employed 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 Cognitive needs: No Hearing needs: No Vision needs: No Physical Exam ED Vital Signs: Vital Signs - 24 hr 10/24/24 20:08 10/24/24 21:57 10/25/24 00:32 Temperature 98.9 F 99.8 F Pulse Rate 107 H 88 68 Respiratory Rate 16 16 18 Blood Pressure 146/76 H 121/69 105/57 L Pulse Oximetry 96 96 97 Oxygen Delivery Method Room Air Room Air Room Air 10/25/24 02:49 Temperature 99.4 F Pulse Rate 68 Respiratory Rate 18 Blood Pressure 105/57 L Pulse Oximetry 97 Oxygen Delivery Method Room Air BMI result Body Mass Index 26.1 Const General: healthy appearing, comfortable, no acute distress, alert and awake Nutritional Appearance: well nourished Orientation/consciousness: patient oriented x3 HENMT Head: Yes normocephalic and Yes atraumatic Eyes Eyelids: Yes eyelids normal Conjunctivae: conjunctivae normal Sclerae: sclerae normal Corneas: corneas normal Pupils: Equal, round and reactive pupils present EOM: EOMs intact bilaterally Neck Neck: Yes full ROM, Yes no meningeal signs, No anterior neck swelling, No positive Brudzinski's sign and No positive Kernig's sign Resp Effort & Inspection: normal respiratory effort, able to speak in complete sentences, no audible wheezes and not labored Auscultation: clear to auscultation bilaterally Cardio Rate: regular rate Rhythm: regular rhythm GI Inspection: No distended Palpation (GI): Soft to palpation, not firm, nontender, no guarding and not rigid Skin Other: There is a small approximately 1 cm area of erythema with a central puncture wound to the left anterior monahan. There is no significant edema, no streaking erythema calf tenderness or palpable cords. General skin exam: elasticity normal Neuro General: patient oriented x3 and no meningeal signs Cranial nerves: Yes CN's II-XII intact bilaterally, Yes Equal, round and reactive pupils present and Yes Bilaterally intact EOM present Cognition (Neuro): normal cognition Extrem Other: Moving all extremities well without any obvious deformities Course Course Course Narrative: 10/24/242007 EVELIN Nelson This is a Rapid Medical Examination (RME) performed by Tasha White PA-C in triage. Full HPI, ROS, assessment and treatment plan per primary provider in the Main ED. Hx: 64 yo M here for eval of fever TMAX 104F, chills, MOREIRA beginning . returned from [facility] today. noticed insect bite to left monahan 3 days ago, is unsure if it's related. he did not take malaria prophylaxis while there. PE/vitals: afebrile in triage Plan: labs, viral swabs Medications Administered Discontinued Medications Generic Name Dose Route Start Last Admin Trade Name Freq PRN Reason Stop Dose Admin Acetaminophen 975 mg 10/24/24 22:00 10/24/24 22:03 Acetaminophen 325 Mg Tablet PO 10/24/24 22:01 975 mg ONCE ONE Administration Acetaminophen 975 mg 10/24/24 22:01 10/24/24 22:05 Acetaminophen 325 Mg Tablet PO 10/24/24 22:02 Not Given ONCE ONE Doxycycline Monohydrate 100 mg 10/25/24 02:20 10/25/24 02:47 Doxycycline Monohydrate 100 Mg Capsule PO 10/25/24 02:21 100 mg ONCE ONE Administration Medical Decision Making Medical Decision Making MDM Narrative: This is a healthy 64-year-old male presenting for evaluation of fever and a small plate wound on his left monahan. He is unsure what bit him. Given the recent travel to [facility], he has a very broad differential including malaria, dengue fever, yellow fever, typhoid fever, tuberculosis a favored to be less likely as the patient has no cough and was only there for a brief period. Leukocytosis but does have slight elevation of neutrophils that could be indicative of an infection. Chemistries are relatively unremarkable. Patient was afebrile in the emergency department but his temperature was slightly elevated at 99.4. Mildly hypotensive at 105/57. Otherwise he was not tachycardic, he was not tachypneic or hypoxic. It does not meet sepsis criteria. We have pending serology for babesiosis, tick-borne illness, malaria smear, blood cultures. There was no indication that he has traveler's diarrhea. We will treat the skin infection with doxycycline which would also cover certain tick-borne illnesses. I did give the patient follow up with To work, infectious Disease should any new or worsening symptoms present. Differential Diagnosis Differential Diagnoses: The differential diagnosis associated with the presentation includes Fever Viral syndrome Cellulitis Tick-borne illness Malaria Lab Data MDM Lab Attestation statement: I reviewed the patient's lab results. As above 10/24/24 20:34 10/24/24 20:34 Labs: Lab Results 10/24/24 10/24/24 Range/Units 20:34 22:16 WBC 5.8 (4.8-10.8) X10*3/uL RBC 4.81 (4.60-5.80) X10*6/uL Hgb 14.5 (14.0-18.0) g/dl Hct 41.9 L (42.0-52.0) % MCV 87.1 (80.0-98.0) fL MCH 30.1 (27.0-33.0) pg MCHC 34.6 (31.0-36.0) g/dl RDW 13.2 (11.0-16.0) % Plt Count 197 (160-400) X10*3/uL MPV 9.4 (9.4-12.4) fL Immature Gran % (Auto) 0.3 (0.0-0.4) % Neut % (Auto) 73.8 H (45-73) % Lymph % (Auto) 14.6 L (20-40) % [place] % (Auto) 10.8 (2-11) % Eos % (Auto) 0.3 (0-4) % Baso % (Auto) 0.2 (0-2) % Lymph # (Auto) 0.8 L (1.2-4.9) X10*3/uL [place] # (Auto) 0.6 (0.1-1.2) X10*3/uL Eos # (Auto) 0.0 (0.0-0.4) X10*3/uL Baso # (Auto) 0.0 (0.0-0.2) X10*3/uL Abs Immat Gran (auto) 0.02 (0.00-0.03) X10*3/uL Absolute Neuts (auto) 4.2 (2.0-8.3) x10*3/uL Absolute Nucleated RBC 0.000 (0.0-0.012) X10*3/uL Nucleated RBC % (auto) 0.0 (0.0-0.2) /100WBC Sodium 136 (135-145) mmol/L Potassium 3.8 (3.3-5.1) mmol/L Chloride 106 (96-108) mmol/L Carbon Dioxide 23 (22-29) mmol/L Anion Gap 11 L (12-20) BUN 11 (9-16) mg/dL Creatinine 0.80 (0.5-1.4) mg/dL Estim Creat Clear Calc 93.2 Estimated GFR > 60 Random Glucose 127 H (60-115) mg/dL Lactic Acid 1.3 (0.5-2.0) mmol/L Calcium 9.1 (8.4-10.2) mg/dL Total Bilirubin 0.5 (0.0-1.0) mg/dL AST 24 (5-37) U/L ALT 32 (0-40) U/L Alkaline Phosphatase 80 (39-117) U/L Total Protein 6.7 (6.5-8.0) g/dL Albumin 4.1 (3.5-5.0) g/dL Influenza Type A (PCR) NEGATIVE (Negative) Influenza Type B (PCR) NEGATIVE (Negative) RSV RNA Qual (PCR) NEGATIVE (Negative) SARS-CoV-2 RNA (RT-PCR) NEGATIVE (Negative) Discharge Plan Discharge Clinical Impression: Fever Patient Disposition: Home, Self-Care Instructions: Fever in Adults (ED) Additional Instructions: Take blood tests have resulted and are reassuring. You tested negative for influenza, COVID-19, RSV Your urinalysis did not show any signs of infection. Your fever could be from the bite on your left monahan We have pending tests for Lyme disease, babesiosis, dengue fever, malaria, and blood cultures We will call you if any of these result positive In the meantime, you may take doxycycline twice daily for 1 week This will treat skin infections and most tick-borne diseases You may follow-up with Infectious Disease, To work for any new or worsening symptoms Prescriptions: New doxycycline hyclate 100 mg tablet 100 mg PO BID Qty: 14 0RF No Action hydrocortisone 2.5 % cream with perineal applicator [address] BID-QID PRN (Reason: hemorrhoids) Qty: 30 0RF atorvastatin 10 mg Tablet 10 mg PO BEDTIME sildenafil 100 mg tablet 100 mg PO DAILY Referrals: Melina Case MD [Physician] - (fever, returned from [facility] today) Interventions: ED Discharge Assessment Last Done: 10/25/24 02:49 Discharge Date/Time: 10/25/24 02:51 Print Language: Mohawk
[2024-10-24 20:08] VITALS: BP 146/76; PULSE 107; RESP 16; TEMP 37.2; O2SAT 96; BMI 26.1
[2024-10-24 20:40] LABS: MANUAL DIFF FLAG NO
[2024-10-24 20:42] LABS: Basophils Percent Auto 0.2 % (0-2); Eosinophils Percent Auto 0.3 % (0-4); Hematocrit 41.9 % (42.0-52.0); Hemoglobin 14.5 g/dl (14.0-18.0); Imm Gran Abs Auto 0.02 X10*3/uL (0.00-0.03); Imm Gran Pct Auto 0.3 % (0.0-0.4); Lymphocytes Absolute Auto 0.8 X10*3/uL (1.2-4.9); Lymphocytes Percent Auto 14.6 % (20-40); Mean Corpuscular HGB Conc 34.6 g/dl (31.0-36.0); Mean Corpuscular Hemoglobin 30.1 pg (27.0-33.0); Mean Corpuscular Volume 87.1 fL (80.0-98.0); Mean Platelet Volume 9.4 fL (9.4-12.4); Monocytes Absolute Auto 0.6 X10*3/uL (0.1-1.2); Monocytes Percent Auto 10.8 % (2-11); Neutrophils Absolute Auto 4.2 x10*3/uL (2.0-8.3); Neutrophils Percent Auto 73.8 % (45-73); Platelet Count 197 X10*3/uL (160-400); Red Blood Count 4.81 X10*6/uL (4.60-5.80); Red Cell Distribution Width 13.2 % (11.0-16.0); White Blood Count 5.8 X10*3/uL (4.8-10.8)
[2024-10-24 21:00] LABS: Alanine Aminotransferase 32 U/L (0-40); Albumin Level 4.1 g/dL (3.5-5.0); Alkaline Phosphatase 80 U/L (39-117); Anion Gap 11 (12-20); Aspartate Amino Transferase 24 U/L (5-37); Bilirubin Total 0.5 mg/dL (0.0-1.0); Blood Urea Nitrogen 11 mg/dL (9-16); Calcium 9.1 mg/dL (8.4-10.2); Carbon Dioxide 23 mmol/L (22-29); Chloride 106 mmol/L (96-108); Creatinine Clr Calc Pharmacy 93.2; Estimated Glomerular Filt Rate > 60; Glucose Random 127 mg/dL (60-115); Potassium 3.8 mmol/L (3.3-5.1); Sodium 136 mmol/L (135-145); Total Protein 6.7 g/dL (6.5-8.0)
[2024-10-24 21:28] LABS: Influenza A PCR NEGATIVE (Negative); Influenza B PCR NEGATIVE (Negative); Resp Syncy Virus RNA Qual PCR NEGATIVE (Negative); SARS COV2 PCR INHOUSE NEGATIVE (Negative)
[2024-10-24 21:57] VITALS: BP 121/69; PULSE 88; RESP 16; TEMP 37.7; O2SAT 96
[2024-10-24] MEDS: Acetaminophen 325 MG TABLET 975 MG PO (22:03)
[2024-10-24 22:42] LABS: Lactic Acid 1.3 mmol/L (0.5-2.0)
--- OUTSIDE RECORDS SUMMARY | 2024-10-25 | XMS_ITS | Patient Health Record ---
Author Organization [facility] Address [address] [place] [address] Care Team Providers Care Energy Rater Name Role Phone Ronnell Armenta MD Primary Care Provider Hans Martínez Unavailable [phone] Allergies No Known Allergies Reason For Referral No Information Medications Medication SIG (Take, Route, Frequency, Duration) Notes Start Date End Date Status Atorvastatin Calcium 10 MG Oral for 90 Active Immunizations Vaccine Route Administration Date Status Comme nts Influenza Unknown 03/02/2018 Administered Influenza Unknown 03/09/2021 Administered Social History Tobacco Use: Social History Observation Description Date Details (start date - stop date) Former Smoker NA - NA Tobacco Use/Smoking Question Answer Notes Patient is [...] drinks (0 point) Points 1 Interpretation Negative Section Notes: Nonsmoker since 2015; occasi onal drink Nonsmoker since 2015; occasional drink Originally from [place] here in the Problems Problem Type SNOMED Code ICD Code Onset Dates Problem Status W/U Status Risk Notes Problem [id number] Encounter for screening for malignant neoplasm of colon (Z12.11) Active confirmed Problem 888677826330316 Pre-procedural examination (Z01.818) Active confirmed Problem Diverticulosis of colon (705715625) Diverticulosis of colon (K57.30) Active confirmed Plan Of Treatment Pending Test Test Name Order Date Pathology 09/10/2021 Future Test Test Name Order Date COLONOSCOPY 06/28/2021 Insurance Providers Payer Name Payer Address Payer Phone Subscriber Number Group Number Insured Name Patient Relationship to Insured Coverage Start Date Coverage End Date [facility] [address] [place], [place] [id number] [phone] [id number] SANDRA ALVAREZ Self - patient is the insured Medical (General) History Medical History History ICD Code Denies [place],DM,CVA,Lung disease,renal dise ase 08/2015 prostate cancer - surgery as belo w Negative colonoscopy in 10/[address] Ayers--diverticulosis Elevated cholesterol Neg. ETT in 2020 Surgical History Surgery Date(Month/Year) Prostate cancer--prostatectomy--[facility] 08/2015 Cholecystectomy 2010 Left inguinal hernia Hemorrhoid
--- NOTE | 2024-10-25 00:06 | PC.NURSE ---
Pt is a pleasant 64 y/o male who presents to the ED for evaluation of cyclical symptoms of illness including headache, chills, and fever. Pt returned from [place] today with , reports feeling fine and is symptom-free. Pt has what looks to be a bite on his lower left leg, medial side, approximately the size of a dime, ? tick or insect. Denies similar episodes in the past. Also denies chest pain, shortness of breath, and abd pain. No nausea/vomiting, or visual disturbances reported. Reports headache is unaffected by OTC pain meds. Food and fluid intake WNL for pt and no problems voiding.
[2024-10-25 00:32] VITALS: BP 105/57; PULSE 68; RESP 18; O2SAT 97
[2024-10-25] MEDS: Doxycycline Monohydrate 100 MG CAPSULE PO (02:47)
[2024-10-25 02:49] VITALS: BP 105/57; PULSE 68; RESP 18; TEMP 37.4; O2SAT 97
[2024-10-26 23:24] LABS: Lyme Abs Screen <0.90 index
[2024-10-27 13:53] LABS: A. Phagocytphilium DNA,RT-PCR NOT DETECTED (NOT DETECTED); Babesia Microti DNA, RT-PCR NOT DETECTED (NOT DETECTED); Borrelia Miyamotoi,DNA RT-PCR NOT DETECTED (NOT DETECTED); E.Chaffeensis DNA RT-PCR NOT DETECTED (NOT DETECTED); Lyme(Borrelia ssp)DNA RT-PCR NOT DETECTED (NOT DETECTED)
[2024-10-27 23:09] LABS: Babesia IgG <1:64 titer (<1:64); Babesia IgM <1:20 titer (<1:20)
== END 2024-10-25 02:51 | disposition home or self-care (01) ==
PROVIDERS: Physician Assistant; Physician Assistant Medical; Emergency Provider Emergency Medicine; PCP Internal Medicine
DX: R50.9 Fever, unspecified (principal); R51.9 Headache, unspecified; Z03.818 Encounter for observation for suspected exposure to other biological agents ruled out; E78.5 Hyperlipidemia, unspecified; Z79.02 Long term (current) use of antithrombotics/antiplatelets
CPT/HCPCS: 0241U; 36415; 80053; 83605; 85025; 86617; 86618; 86753; 87040; 87207; 87468; 87469; 87478; 87484; 87798; 99283

== ENCOUNTER 2024-10-28 07:39 | Outpatient (AMB) | payer BC, SELFPAY ==
--- OUTSIDE RECORDS SUMMARY | 2024-10-28 07:42 | XMS_ITS | Patient Health Record ---
Author Organization [facility] Address [address] [place] [address] Care Team Providers Care [employer] Magistrate Name Role Phone Ronnell Armenta MD Primary Care Provider Hans Martínez Unavailable [phone] Allergies No Known Allergies Reason For Referral [...] Problem Status W/U Status Risk Notes Problem 398714076 Encounter for screening for malignant neoplasm of colon (Z12.11) Active confirmed Problem 759113956253525 Pre-procedural examination (Z01.818) Active confirmed Problem Diverticulosis of colon (688436216) Diverticulosis of colon (K57.30) Active confirmed Plan Of Treatment Pending Test Test Name Order Date Pathology 09/10/2021 Future Test Test Name Order Date COLONOSCOPY 06/28/2021 Insurance Providers Payer Name Payer Address Payer Phone Subscriber Number Group Number Insured Name Patient Relationship to Insured Coverage Start Date Coverage End Date [facility] [address] [place], [place] [id number] SANDRA ALVAREZ Self - patient is the insured Medical (General) History Medical History History ICD Code Denies [place],DM,CVA,Lung disease,renal dise ase 08/2015 prostate cancer - surgery as belo w Negative colonoscopy in 10/[address] Ayers--diverticulosis Elevated cholesterol Neg. ETT in 2020 Surgical History Surgery Date(Month/Year) Prostate cancer--prostatectomy--[facility] in[facility] 08/2015 Cholecystectomy 2010 Left inguinal hernia Hemorrhoid
--- NOTE | 2024-10-28 07:49 | MHC.PC.OV ---
Vital Signs 10/28/24 07:50 Height 5 ft 9 in Weight 173 lb BMI 25.5 BP 130/86 Blood Pressure Location Lt brachial Position Sitting Intake Visit Reasons: follow up, spider bite or tick bite Rolling Attendant Required: No Accompanied by: Self / Same As Patient Allergies shellfish derived Allergy (Unknown, Verified 10/28/24 08:03) Unknown Medication List - Last Reconciled 10/28/24 by Rosamaria Marshall MD atorvastatin 10 mg PO BEDTIME doxycycline hyclate 100 mg PO BID sildenafil 100 mg PO DAILY Tobacco use date assessed: 06/24/24 Fall risk assessment: No Falls in past year Last assessed Fall Risk: 10/28/24 Dental Screening Dental Screen Date: 06/24/24 HPI HPI Comments History of Present Illness Details The patient is a 64-year-old male presenting with symptoms following travel, including the development of a bite above the left ankle, severe fever, chills, and nausea starting last after returning from a trip to [facility]. Initially suspecting COVID-19, no diagnostic testing was performed. He endured significant distress during a 17-hour flight back home on Friday. By evening, he noticed a bite on his left ankle, which was suspected to be an insect bite acquired [place]. The site of the bite was initially tender but improved with the administration of doxycycline in which he went to the hospital 10/24/2024. The chief complaint remains episodic occipital headaches interfering with his daily functions, accompanied by transient visual blurriness especially when donning glasses. While systemic infections like babesia, Borrelia Lyme disease, and malaria were ruled out via laboratory tests, results for dengue fever are still pending. The recurrent nausea and headache are troublesome, prompting the patient to seek further care for assessment and management. On statins for hyperlipidemia and Viagra for erectile dysfunction. [facility] Medical History (Updated 10/28/24 @ 08:22 by Rosamaria Marshall MD) Prostate cancer COVID-19 vaccine series completed Bleeding hemorrhoids History of prostate cancer Hyperlipidemia Surgical History Hx of hemorrhoidectomy Hx of prostatectomy Hx of bilateral inguinal hernia repair H/O colonoscopy (09/12/21) History of removal of cyst History of cholecystectomy Social History Housing: House Are you a primary care transitions nurse to a significant other at home: No Do you presently have visiting nurse or other home services: No Alcohol intake: current Alcohol intake frequency: holidays/special occasions only Patient Tobacco Use Status: Former Tobacco user (2017) Tobacco use type: Cigarette e-Cigarette/Vaping Use: Never Used Second Hand Smoke Exposure: Yes service: Yes Current occupational status: employed 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 1. Little interest or pleasure in doing things: not at all 2. Feeling down, depressed, or hopeless: not at all 3. Trouble falling or staying asleep, or sleeping too much: not at all 4. Feeling tired or having little energy: not at all 5. Poor appetite or overeating: not at all 6. Feeling bad about yourself - or that you are a failure or have let yourself or your family down: not at all 7. Trouble concentrating on things, such as reading the newspaper or watching television: not at all 8. Moving or speaking so slowly that other people could have noticed. Or the opposite - being so fidgety or restless that you have been moving around a lot more than usual: not at all 9. Thoughts that you would be better off or of hurting yourself in some way: not at all Total score: 0 Depression Screening Interpretation: Negative Depression Screening Done: Yes 97518 - PHQ-9 Billing: Yes Source: Developed by Drs. Hans Mason, Catalina Abdullahi, Krishna Her and colleagues, with an educational jeanette from [employer]. Thrive Questionnaire Date Thrive assessed: 06/17/24 I am a: Patient What is your living situation today?: I have a steady place to live Within the past 12 months, did the food you bought not last and you didn't have the money to get more?: Never true Within the past 12 months, did you worry whether your food would run out before you got money to buy more?: Never true Do you have trouble paying for medicines?: No Do you have trouble getting transportation to medical appointments?: No Do you have trouble paying your heating and electricity bill?: No Do you have trouble taking care of your child, family member or friend?: No Do you have trouble with day-to-day activities such as bathing, preparing meals, shopping, managing finances, etc.?: No Are you currently unemployed and looking for a job?: No Are you interested in more education?: No Please select the resources that you would like help with: None Currently or been in a relationship where the following occur: No concerns reported THRIVE Score: 0 AUDIT C Alcohol Use Questionnaire (AUDIT-C) 1. How often do you have a drink containing alcohol?: Monthly or less 2. How many drinks containing alcohol do you have on a typical day when you are drinking?: 1 or 2 3. How often do you have six or more drinks on one occasion?: Never Total Score: 1 Score Reviewed/Action Taken: No THEODORE-7 AMB Questionnaire THEODORE-7 Date THEODORE - 7 assessed: 10/28/24 Feeling nervous, anxious, or on edge: 0 = Not at all Not being able to stop or control worryin = Not at all Worrying too much about different things: 0 = Not at all Trouble relaxin = Not at all Being so restless that it is hard to sit still: 0 = Not at all Becoming easily annoyed or irritable: 0 = Not at all Feeling afraid as if something awful might happen: 0 = Not at all Total THEODORE-7 score (0-4 normal; 5-9 mild; 10-14 moderate; 15-21 severe): 0 Source: Developed by Drs. Hans Mason, Catalina Abdullahi, Krishna Her and colleagues, with an educational jeanette from [employer]. THEODORE-7 Assessment Billing THEODORE-7 Assessment Tool: THEODORE-7 Assessment 50795 Review of Systems Const All systems reviewed & are unremarkable except as noted in HPI and below Reports headache(s) Eyes Reports blurry vision ENT Reports headache(s) Card Denies chest pain at rest, Denies chest pain with activity, Denies edema, Denies irregular heart rhythm, Denies claudication, Denies dyspnea, Denies dyspnea on exertion, Denies orthopnea, Denies paroxysmal nocturnal dyspnea and Denies slow heart rate Resp Denies cough, Denies dyspnea and Denies dyspnea on exertion Skin/Breast Reports lesions Neuro Reports headache(s) Physical exam (Primary Care) Vital Signs: Last Vital Signs BP 130/86 10/28/24 07:50 BMI result Body Mass Index 25.5 Tobacco/Smoking Status: Tobacco use Status Tobacco use date assessed 06/24/24 10/28/24 07:55 Patient Tobacco Use Status Former Tobacco user (2017) 10/28/24 07:55 Tobacco use type Cigarette 10/28/24 07:55 e-Cigarette/Vaping Use Never Used 10/28/24 07:55 PHQ-9: PHQ-9 Score PHQ-9: Total score 0 10/28/24 07:55 Depression Screening Interpretation: Negative Thrive Assessment: Date of Thrive Assessment Date Thrive assessed 06/17/24 10/28/24 07:55 Currently or been in a relationship where the following occur: No concerns reported Resp Effort & Inspection: normal respiratory effort Auscultation: clear to auscultation bilaterally Cardio Jugular venous distension: no JVD Rate: regular rate Rhythm: regular rhythm Heart sounds: S1 normal heart sound present and S2 normal heart sound present Skin Lesions: lesion noted (left ankle erythema with eschar in the center) Extrem General: Yes full ROM Psych Appearance: grossly normal Coding Level of Care Code Est Pt Level 4 (14871) Complex EM visit Add On G2211 Diagnoses Hospital discharge follow-up Z09 Spider bite T63.301A Hyperlipidemia E78.5 Erectile dysfunction N52.9 Additional Codes PHQ-9 - 18977 - PHQ-9 Billing: Yes ([id number]) THEODORE-7 Assessment Billing - THEODORE-7 Assessment Tool: THEODORE-7 Assessment 43712 ([id number]) Time Spent (min) 20 Assessment & Plan Assessment & Plan (1) Hospital discharge follow-up: Code(s): Z09 - Encounter for follow-up examination after completed treatment for conditions other than malignant neoplasm Category: Medical (2) Spider bite: Code(s): T63.301A - Toxic effect of unspecified spider venom, accidental (unintentional), initial encounter Category: Medical (3) Hyperlipidemia: Code(s): E78.5 - Hyperlipidemia, unspecified Category: Medical (4) Erectile dysfunction: Code(s): N52.9 - Male erectile dysfunction, unspecified Category: Medical Plan The patient will continue doxycycline for his presumed insect bite, which is improving. Additional medication will be provided to manage the persistent headaches. A pending dengue fever test is awaited, though unlikely. A refill for sildenafil was arranged at [facility]. The patient opted to defer a tetanus booster. Follow-up will address treatment response and symptom progression. Patient was informed and verbally consented to the use of an ambient scribe for clinic note documentation during this visit. During the consultation, we discussed the ongoing management of the patient's symptoms with a focus on his current antibiotic regimen for the presumed insect bite. We reviewed the need for additional medication to alleviate the headache symptoms and provided a prescription for this. The patient understood the low likelihood of dengue fever given the normal laboratory results but acknowledged that results for dengue were still pending. We discussed deferring the tetanus booster until his condition improves and arranged for a refill of sildenafil. Follow-ups were advised to monitor symptom resolution and potential adjustment of the treatment plan. Medications: New sumatriptan succinate do not exceed 8 doses per 24 hrs 25 mg PO Q2-4H 30 days PRN 9 tabs 0RF migraine headache Changed From sildenafil 100 mg PO DAILY To sildenafil 100 mg PO DAILY 30 days 5 tabs 0RF Patient Instructions: - Continue taking doxycycline as prescribed. - Use the new headache medication as needed for relief. - Monitor symptoms and report any significant changes. - Await results for the dengue fever test. - Refills for the medication are available at [facility]. - Call the office if symptoms persist or worsen. - Follow up with your primary care physician as planned.
[2024-10-28 07:50] VITALS: BP 130/86; BMI 25.5
== END 2024-10-28 14:31 | disposition home or self-care (01) ==
LOC: HO.HMCH 07:40
PROVIDERS: PCP Internal Medicine; Visit Provider Internal Medicine
DX: Z09 Encounter for follow-up examination after completed treatment for conditions other than malignant neoplasm (principal); T63.301A Toxic effect of unspecified spider venom, accidental (unintentional), initial encounter; E78.5 Hyperlipidemia, unspecified; N52.9 Male erectile dysfunction, unspecified

== ENCOUNTER → 2024-10-28 07:39 | Outpatient (BNVA) | payer BC, SELFPAY | PROVIDERS: PCP Internal Medicine; Visit Provider Internal Medicine | DX: T63.301A Toxic effect of unspecified spider venom, accidental (unintentional), initial encounter (principal); Y92.9 Unspecified place or not applicable; E78.5 Hyperlipidemia, unspecified; N52.9 Male erectile dysfunction, unspecified; Z13.30 Encounter for screening examination for mental health and behavioral disorders, unspecified | CPT/HCPCS: 96127 ==

== ENCOUNTER 2024-12-23 08:07 | Outpatient (AMB) | payer BC, SELFPAY ==
--- OUTSIDE RECORDS SUMMARY | 2024-12-23 08:10 | XMS_ITS | Patient Health Record ---
Author Organization [facility] Address [address] [place] [address] Care Team Providers Care Consular Officer Name Role Phone Geovany (RETIRED) Ronnell WILLIAMSON Primary Care Provide r Unavailable Hans Glasgow Unavailable [phone] Allergies No Known Allergies Reason For Referral [...] Problem Status W/U Status Risk Notes Problem [id number] Encounter for screening for malignant neoplasm of colon (Z12.11) Active confirmed Problem [id number] Pre-procedural examination (Z01.818) Active confirmed Problem Diverticulosis of colon (500346766) Diverticulosis of colon (K57.30) Active confirmed Plan Of Treatment Pending Test Test Name Order Date Pathology 09/10/2021 Future Test Test Name Order Date COLONOSCOPY 06/28/2021 Insurance Providers Payer Name Payer Address Payer Phone Subscriber Number Group Number Insured Name Patient Relationship to Insured Coverage Start Date Coverage End Date [facility] [address] [place], [place] [id number] [phone] [id number] SANDRA ALVAREZ Self - patient is the insured Medical (General) History Medical History History ICD Code Denies MS,DM,CVA,Lung disease,renal dise ase 08/2015 prostate cancer - surgery as belo w Negative colonoscopy in 10/[address] Ayers--diverticulosis Elevated cholesterol Neg. ETT in 2020 Surgical History Surgery Date(Month/Year) Prostate cancer--prostatectomy--[facility] 08/2015 Cholecystectomy 2010 Left inguinal hernia Hemorrhoid
--- NOTE | 2024-12-23 08:14 | MHC.PC.OV ---
Vital Signs 12/23/24 08:16 Height 5 ft 9 in Weight 168 lb 4 oz BMI 24.8 BP 118/66 Blood Pressure Location Lt brachial Position Sitting Pulse 85 Pulse Source Pulse Oximeter Temp 97.3 F Temp Source Temporal Artery Scan Pulse Oximetry (%) 96 Oxygen Delivery Method Room Air Intake Visit Reasons: 6mth f/u Intake Note: Patient is here to follow up on HLD, ED. Precision Honing Machine Operator Required: No Mirror Specialist: Not Required per policy Accompanied by: Self / Same As Patient Allergies shellfish derived Allergy (Unknown, Verified 12/23/24 08:16) Unknown Tobacco use date assessed: 12/23/24 Fall risk assessment: No Falls in past year Last assessed Fall Risk: 12/23/24 Dental Screening Dental Screen Date: 06/24/24 [facility] Medical History Prostate cancer COVID-19 vaccine series completed Bleeding hemorrhoids History of prostate cancer Hyperlipidemia Surgical History Hx of hemorrhoidectomy Hx of prostatectomy Hx of bilateral inguinal hernia repair H/O colonoscopy (09/12/21) History of removal of cyst History of cholecystectomy Social History Housing: House Are you a primary lawn care technician to a significant other at home: No Do you presently have visiting nurse or other home services: No Alcohol intake: current Alcohol intake frequency: holidays/special occasions only Patient Tobacco Use Status: Former Tobacco user (2017) Tobacco use type: Cigarette e-Cigarette/Vaping Use: Never Used Second Hand Smoke Exposure: Yes service: Yes Current occupational status: employed 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 Cognitive needs: No Hearing needs: No Vision needs: No Questionnaire Thrive Questionnaire Date Thrive assessed: 06/17/24 I am a: Patient What is your living situation today?: I have a steady place to live Within the past 12 months, did the food you bought not last and you didn't have the money to get more?: Never true Within the past 12 months, did you worry whether your food would run out before you got money to buy more?: Never true Do you have trouble paying for medicines?: No Do you have trouble getting transportation to medical appointments?: No Do you have trouble paying your heating and electricity bill?: No Do you have trouble taking care of your child, family member or friend?: No Do you have trouble with day-to-day activities such as bathing, preparing meals, shopping, managing finances, etc.?: No Are you currently unemployed and looking for a job?: No Are you interested in more education?: No Please select the resources that you would like help with: None Currently or been in a relationship where the following occur: No concerns reported THRIVE Score: 0 THEODORE-7 AMB Questionnaire THEODORE-7 Date THEODORE - 7 assessed: 10/28/24 Source: Developed by Drs. Hans Mason, Catalina Abdullahi, Krishna Her and colleagues, with an educational jeanette from [employer]. Physical exam (Primary Care) Vital Signs: Last Vital Signs Temp 97.3 F 12/23/24 08:16 Pulse 85 12/23/24 08:16 BP 118/66 12/23/24 08:16 Pulse Ox 96 12/23/24 08:16 Oxygen Delivery Method Room Air 12/23/24 08:16 BMI result Body Mass Index 24.8 Tobacco/Smoking Status: Tobacco use Status Tobacco use date assessed 12/23/24 12/23/24 08:23 Patient Tobacco Use Status Former Tobacco user (2017) 12/23/24 08:23 Tobacco use type Cigarette 12/23/24 08:23 e-Cigarette/Vaping Use Never Used 12/23/24 08:23 Thrive Assessment: Date of Thrive Assessment Date Thrive assessed 06/17/24 12/23/24 08:23 Currently or been in a relationship where the following occur: No concerns reported Coding Level of Care Code Est Pt Level 4 (35212) Complex EM visit Add On G2211 Diagnoses Hyperlipidemia E78.5 Erectile dysfunction N52.9 Prostate cancer C61 Assessment & Plan Assessment & Plan (1) Hyperlipidemia: Code(s): E78.5 - Hyperlipidemia, unspecified Category: Medical Plan: LDL in range, Continue statins at current dosage (2) Erectile dysfunction: Code(s): N52.9 - Male erectile dysfunction, unspecified Category: Medical Plan: Intermittent use of viagra. (3) Prostate cancer: Code(s): C61 - Malignant neoplasm of prostate Category: Medical Plan: PSA is stable Plan History of Present Illness - The patient is a 64-year-old male presenting for a routine wellness visit and medication refill. - Hyperlipidemia: The patient is on a statin medication and requires a refill as he is running low. - Prostate cancer: The patient's PSA levels are undetectable, indicating remission. - Lifestyle changes: The patient has ceased consuming sugary foods and beverages, leading to weight loss and improved well-being. - Preventative care: The patient is advised to engage in regular exercise, approximately five hours per week, including activities such as walking and weight lifting. Social History - The patient has stopped consuming sugary foods and beverages, including soda, chocolates, candies, and cookies, which has contributed to weight loss and improved health. Review of Systems - Gastrointestinal: Denies abdominal pain. - Genitourinary: Denies dysuria. - Neurological: Denies visual disturbances such as halos around lights while driving at night. Physical Exam General: Cooperative and healthy appearing Nutritional Appearance: Well nourished Orientation/consciousness: Patient oriented x3 Limitations: No limitations Head: Normal to inspection General: Appearance normal, both eyes and all related structures Neck: Normal visual inspection Chest: Normal palpation of entire chest wall Respiratory: N ormal respiratory effort Neurology: Patient oriented x3, able to function and perform all activities without issues. Results - Labs: Cholesterol levels are within normal range. - Labs: PSA levels are undetectable. Plan 1. Hyperlipidemia - Continue current statin therapy; refill prescribed. - Encourage adherence to lifestyle modifications, including diet and exercise. 2. Prostate Cancer (In Remission) - Continue monitoring PSA levels regularly. Discussion Notes I discussed with the patient the importance of continuing his current statin therapy and maintaining lifestyle modifications to manage hyperlipidemia. We also reviewed the significance of regular PSA monitoring given his history of prostate cancer. I advised him to engage in regular physical activity and provided a prescription refill for his medications. Follow-up is scheduled in six months to reassess his health status and medication needs. Patient Instructions - Continue taking your statin medication as prescribed. - Maintain a healthy diet and exercise regularly, aiming for at least five hours of physical activity per week. - Monitor your health and report any new symptoms or concerns. - Schedule a follow-up appointment in six months. Medications: New atorvastatin 10 mg PO BEDTIME 90 tabs 1RF Refilled sildenafil 100 mg PO DAILY 5 tabs 0RF 30 days
[2024-12-23 08:16] VITALS: BP 118/66; PULSE 85; TEMP 36.3; O2SAT 96; BMI 24.8
== END 2024-12-23 08:36 | disposition home or self-care (01) ==
LOC: HO.HMCH 08:08
PROVIDERS: PCP Internal Medicine; Visit Provider Internal Medicine
DX: E78.5 Hyperlipidemia, unspecified (principal); N52.9 Male erectile dysfunction, unspecified; C61 Malignant neoplasm of prostate

== ENCOUNTER 2025-03-25 11:20 | Outpatient (AMB) | payer BC, SELFPAY ==
--- NOTE | 2025-03-25 11:29 | A.OFFPC_ITS ---
Vital Signs 03/25/25 11:30 Height 5 ft 9 in Weight 170 lb 6 oz BMI 25.2 BP 110/66 Blood Pressure Location Lt brachial Position Sitting Pulse 59 Pulse Source Pulse Oximeter Temp 97.3 F Temp Source Temporal Artery Scan Pulse Oximetry (%) 95 Oxygen Delivery Method Room Air Intake Visit Reasons: blood shot rt eye after flight Intake Note: Patient is here to follow up on Blood shot right eye after flight. 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 Accompanied by: Spouse Allergies shellfish derived Allergy (Unknown, Verified 03/25/25 11:29) Unknown Medication List - Last Reconciled 03/25/25 by Kris Chavez MD atorvastatin 10 mg PO BEDTIME neomycin-polymyxin B-dexameth 3.5mg/mL-10,000 unit/mL-0.1 % 1 drp ophthalmic (eye) Q6H sildenafil 100 mg PO DAILY Tobacco use date assessed: 03/25/25 Fall risk assessment: No Falls in past year Last assessed Fall Risk: 03/25/25 Dental Screening Dental Screen Date: 06/24/24 HPI HPI Comments History of Present Illness Details The patient is a 64-year-old male presenting with right eye discomfort and redness. The symptoms began after returning from a work trip to [place], where he noticed the issue upon deplaning. He describes the sensation as if something is in the eye, with noticeable pressure when touched. There are no associated symptoms such as fever, chills, night sweats, rash, or flu-like symptoms. The patient has not engaged in activities like swimming in lakes or beaches that might contribute to the condition. The patien was concerned about shingles. I explained to him that this is less likely as there is no severe pain or external rash typical of shingles. [facility] Medical History Prostate cancer COVID-19 vaccine series completed Bleeding hemorrhoids History of prostate cancer Hyperlipidemia Surgical History Hx of hemorrhoidectomy Hx of prostatectomy Hx of bilateral inguinal hernia repair H/O colonoscopy (09/12/21) History of removal of cyst History of cholecystectomy Social History Housing: House Are you a primary animal daycare provider to a significant other at home: No Do you presently have visiting nurse or other home services: No Alcohol intake: current Alcohol intake frequency: holidays/special occasions only Patient Tobacco Use Status: Former Tobacco user (2017) Tobacco use type: Cigarette e-Cigarette/Vaping Use: Never Used Second Hand Smoke Exposure: Yes service: Yes Current occupational status: employed 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 Cognitive needs: No Hearing needs: No Vision needs: No Questionnaire Thrive Questionnaire Date Thrive assessed: 06/17/24 I am a: Patient What is your living situation today?: I have a steady place to live Within the past 12 months, did the food you bought not last and you didn't have the money to get more?: Never true Within the past 12 months, did you worry whether your food would run out before you got money to buy more?: Never true Do you have trouble paying for medicines?: No Do you have trouble getting transportation to medical appointments?: No Do you have trouble paying your heating and electricity bill?: No Do you have trouble taking care of your child, family member or friend?: No Do you have trouble with day-to-day activities such as bathing, preparing meals, shopping, managing finances, etc.?: No Are you currently unemployed and looking for a job?: No Are you interested in more education?: No Please select the resources that you would like help with: None Currently or been in a relationship where the following occur: No concerns reported THRIVE Score: 0 THEODORE-7 AMB Questionnaire THEODORE-7 Date THEODORE - 7 assessed: 10/28/24 Source: Developed by Drs. Hans Mason, Catalina Abdullahi, Krishna Her and colleagues, with an educational jeanette from [employer]. Review of Systems Const Details: Positives besides what was mentioned in HPI are in BOLD Constitutional: No Weight Change, No Fever, No Chills, No Night Sweats, No Fatigue, No Malaise ENT/Mouth: No Hearing Changes, No Ear Pain, No Nasal Congestion, No Sinus Pain, No Hoarseness, No sore throat, No Rhinorrhea, No Swallowing Difficulty Eyes: No Eye Pain, No Swelling, No Redness, No Foreign Body, No Discharge, No Vision Changes Cardiovascular: No Chest Pain, No SOB, No PND, No Dyspnea on Exertion, No Orthopnea, No Claudication, No Edema, No Palpitations Respiratory: No Cough, No Sputum, No Wheezing, No Smoke Exposure, No Dyspnea Gastrointestinal: No Nausea, No Vomiting, No Diarrhea, No Constipation, No Pain, No Heartburn, No Anorexia, No Dysphagia, No Hematochezia, No Melena, No Flatulence, No Jaundice Genitourinary: No Dysmenorrhea, No DUB, No Dyspareunia, No Dysuria, No Urinary Frequency, No Hematuria, No Urinary Incontinence, No Urgency, No Flank Pain, No Urinary Flow Changes, No Hesitancy Musculoskeletal: No Arthralgias, No Myalgias, No Joint Swelling, No Joint Stiffness, No Back Pain, No Neck Pain, No Injury History Skin: No Skin Lesions, No Pruritis, No Hair Changes, No Breast/Skin Changes, No Nipple Discharge Neuro: No Weakness, No Numbness, No Paresthesias, No Loss of Consciousness, No Syncope, No Dizziness, No Headache, No Coordination Changes, No Recent Falls Psych: No Anxiety/Panic, No Depression, No Insomnia, No Personality Changes, No Delusions, No Rumination, No SI/HI/AH/VH, No Social Issues, No Memory Changes, No Violence/Abuse Hx., No Eating Concerns Heme/Lymph: No Bruising, No Bleeding, No Transfusions History, No Lymphadenopathy Endocrine: No Polyuria, No Polydipsia, No Temperature Intolerance Physical exam (Primary Care) Vital Signs: Last Vital Signs Temp 97.3 F 03/25/25 11:30 Pulse 59 03/25/25 11:30 BP 110/66 03/25/25 11:30 Pulse Ox 95 03/25/25 11:30 Oxygen Delivery Method Room Air 03/25/25 11:30 BMI result Body Mass Index 25.2 Tobacco/Smoking Status: Tobacco use Status Tobacco use date assessed 03/25/25 03/25/25 11:35 Patient Tobacco Use Status Former Tobacco user (2017) 03/25/25 11:35 Tobacco use type Cigarette 03/25/25 11:35 e-Cigarette/Vaping Use Never Used 03/25/25 11:35 Thrive Assessment: Date of Thrive Assessment Date Thrive assessed 06/17/24 03/25/25 11:35 Currently or been in a relationship where the following occur: No concerns reported Const Other: Pertinent findings are in BOLD GENERAL APPEARANCE NAD, activity normal for age, well developed/ well nourished, no cyanosis, pallor, or diaphoresis. EYES lids/conjunctiva red right eye. EARS/NOSE/THROAT Mucous membranes moist, nares normal, lips/teeth normal uvula midline without oral pharyngeal erythema, exudate or swelling TMs normal bilaterally. No lymphangitis/lymphedema. HEAD/NECK normocephalic atraumatic, no facial trauma, neck is supple. RESPIRATORY respiratory effort normal, speaks in full sentences, no tripod position, no accessory muscle use. Lungs clear to auscultation without rhonchi, wheezes, rales CARDIAC Regular rate and rhythm, no edema. ABDOMINAL Soft, ND/NT. No evidence of fluid wave. No pulsatile masses on exam, rebound tenderness, Amezcua sign or pain over Mcburney's point. MUSCLES/EXTREMITIES No abnormal range of motion, no swelling. SKIN Warm, pink and dry. No rashes, dermatoses, petechiae or lesions. NEUROLOGICAL Speech is clear and appropriate. Normal level of consciousness. Gait and coordination are normal. 5/5 strength in all extremities. PSYCH Normal mood and affect. Judgement/competence is appropriate Coding Level of Care Code Est Pt Level 3 (06863) Diagnoses Episcleritis of right eye H15.101 Laterality: right Time Spent (min) 20 Assessment & Plan Assessment & Plan (1) Episcleritis: Code(s): H15.109 - Unspecified episcleritis, unspecified eye Category: Medical Qualifiers: Laterality: right Qualified Code(s): H15.101 - Unspecified episcleritis, right eye Plan: - Prescribed neomycin-polymyxin B-dexameth to be used every six hours for 5 days . - Advised to return if symptoms do not improve after two weeks. Medications: New neomycin-polymyxin B-dexameth 3.5mg/mL-10,000 unit/mL-0.1 % 1 drp ophthalmic (eye) Q6H 5 mL 0RF Refilled sildenafil 100 mg PO DAILY 5 tabs 0RF N52.9 - Male erectile dysfunction, unspecified
[2025-03-25 11:30] VITALS: BP 110/66; PULSE 59; TEMP 36.3; O2SAT 95; BMI 25.2
--- OUTSIDE RECORDS SUMMARY | 2025-03-25 14:08 | XMS_ITS | Patient Health Record ---
Author Organization [facility] Address [address] [place] [address] Care Team Providers Care Coding Advisor Name Role Phone Geovany (RETIRED) Ronnell WILLIAMSON Primary Care Provide r Unavailable Hans Glasgow Unavailable [phone] Allergies No Known Allergies Reason For Referral No Information Medications Medication SIG (Take, Route, Frequency, Duration) Notes Start Date End Date Status Atorvastatin Calcium 10 MG Oral; Duration: 90 Active Immunizations Vaccine Route Administration Date [...] Problem Status W/U Status Risk Notes Problem Screening for malignant neoplasm of colon (958386542) Encounter for screening for malignant neoplasm of colon (Z12.11) Active confirmed Problem Pre-procedure evaluation check (706796668) Pre-procedural examination (Z01.818) Active confirmed Problem Diverticulosis of colon (933349388) Diverticulosis of colon (K57.30) Active confirmed Plan Of Treatment Pending Test Test Name Order Date Pathology 09/10/2021 Future Test Test Name Order Date COLONOSCOPY 06/28/2021 Insurance Providers Payer Name Payer Address Payer Phone Subscriber Number Group Number Insured Name Patient Relationship to Insured Coverage Start Date Coverage End Date [facility] [address] [place], [place] [id number] SANDRA ALVAREZ Self - patient is the insured Medical (General) History Medical History History ICD Code Denies [place],DM,CVA,Lung disease,renal dise ase 08/2015 prostate cancer - surgery as belo w Negative colonoscopy in 10/[address] Ayers--diverticulosis Elevated cholesterol Neg. ETT in 2020 Surgical History Surgery Date(Month/Year) Prostate cancer--prostatectomy--[facility] 08/2015 Cholecystectomy 2010 Left inguinal hernia Hemorrhoid
== END 2025-03-25 12:26 | disposition home or self-care (01) ==
LOC: HO.HMCH 11:20
PROVIDERS: PCP Internal Medicine; Visit Provider Internal Medicine
DX: H15.101 Unspecified episcleritis, right eye (principal)